=== PATIENT | female | born 1960 | race Hispanic/Latino ===

== ENCOUNTER 2019-10-18 16:05 | Emergency (ER) | payer SELFPAY ==
--- NOTE | 2019-10-18 17:48 | Event Note ---
ED Screening Note Date of service: 10/18/19 Time: 17:47 ED Screening Note: Pt complains of right ankle pain after injury 4 days This initial assessment/diagnostic orders/clinical plan/treatment(s) is/are subject to change based on patients health status, clinical progression and re-assessment by fellow clinical providers in the ED. Further treatment and workup at subsequent clinical providers discretion. Patient/guardian urged not to elope from the ED as their condition may be serious if not clinically assessed and managed. Initial orders include: XR
--- NOTE | 2019-10-18 18:23 | XRay Report ---
RIGHT ANKLE 4 VIEWS INDICATION: lateral pain after injury. COMPARISON: No relevant prior imaging study available. FINDINGS: No acute, displaced fracture or dislocation is seen. There is mild anterolateral soft tissue swelling . IMPRESSION: 1. No acute fracture. Signer Name: Oneal Sher MD Signed: 10/18/2019 6:18 PM Workstation Name: [id number]
[2019-10-18] MEDS ORDERED: KETOROLAC 60 MG/2 ML INJ IM ONE (22:23)
--- NOTE | 2019-10-18 22:31 | Emergency Department Report ---
ED Lower Extremity HPI - General Chief Complaint: Extremity Injury, Lower Stated Complaint: RT ANKLE INJURY/PAIN Time Seen by Provider: 10/18/19 17:47 Source: patient Mode of arrival: Ambulatory Limitations: No Limitations - History of Present Illness MD Complaint: ankle injury (reports tripped in the yard and twisting right ankle.) -: Gradual, hour(s) Injury: Ankle: Right Type of Injury: inversion Place: street/outdoors Severity: mild Severity scale (0 -10): 2 Improves With: immobilization Worsens With: weight bearing, movement Context: other (twisting) Associated Symptoms: able to partially bear weight - Related Data Previous Rx's Medication Instructions Recorded Last Taken Type Ibuprofen [Motrin 400 MG tab] 400 mg PO Q6H PRN #14 tablet 10/18/19 Unknown Rx methOCARBAMOL [Robaxin TAB] 500 mg PO BID PRN #10 tab 10/18/19 Unknown Rx Allergies Allergy/AdvReac Type Severity Reaction Status Date / Time haloperidol [From Haldol] Allergy Seizure Verified 10/18/19 16:08 ED Review of Systems ROS: Stated complaint: RT ANKLE INJURY/PAIN Other details as noted in HPI Other: GENERAL: No weight change, fatigue, fever, chills, or night sweats SKIN: No changes in skin or hair, no itching, no rashes, no jaundice HEAD: No trauma EYES: No blurriness, tearing, itching, acute visual loss, conjunctival discoloration, or scleral icterus EARS: No hearing loss, tinnitus, vertigo, or earache NOSE: No rhinorrhea, stuffiness, sneezing, itching, or epistaxis MOUTH: No bleeding gums, hoarseness, sore throat, or swelling CARDIAC: No new murmur, chest pain, palpitations, dyspnea on exertion, orthopnea, PND, or edema RESPIRATORY: No shortness of breath, wheeze, cough, sputum production, hemoptysis GI: No abdominal pain, nausea, vomiting, dysphagia, diarrhea, constipation, hematemesis, melena, hematochezia URINARY: No frequency, urgency, polyuria, dysuria, hematuria, or incontinence MUSCULOSKELETAL: Right ankle pain NEUROLOGIC: No headache, syncope, loss of sensation, numbness, tingling, tremors, weakness, paralysis, seizures HEMATOLOGIC: No anemia, easy bruising, bleeding, petechiae, or purpura ENDOCRINE: No hot or cold intolerance, sweating, polyuria, polydipsia or, polyphagia no thyroid problems PSYCHIATRIC: No change in mood, no anxiety, no depression ED Past Medical Hx - Past Medical History Additional medical history: FIBROMYALGIA - Social History Smoking Status: Current Every Day Smoker Substance Use Type: None - Medications Home Medications: Home Medications Medication Instructions Recorded Confirmed Last Taken Type Ibuprofen [Motrin 400 MG tab] 400 mg PO Q6H PRN #14 tablet 10/18/19 Unknown Rx methOCARBAMOL [Robaxin TAB] 500 mg PO BID PRN #10 tab 10/18/19 Unknown Rx ED Physical Exam - General Limitations: No Limitations - Other Other exam information: GENERAL: Patient in no acute distress HEAD: Normocephalic, atraumatic EYES: PERRLA, EOM intact, no scleral icterus, no conjunctival hemorrhage, visual farrar and acuity wnl HEART: pulses are symmetric LUNGS: No respiratory distress. MUSCULOSKELETAL: Right lateral malleolus swelling and mild tenderness. Decreased ROM right ankle due to pain. Mild erythema right ankle lateral malleolus. Mild tenderness. NEUROLOGIC: GCS 15, Alert and Oriented x3, Cranial nerves intact, normal sensation, normal strength, no cerebellar deficit, NIHSS 0 SKIN: Skin is warm and dry, no wounds, no rashes ED Course Vital Signs 10/18/19 10/18/19 10/18/19 17:48 22:32 23:00 Temperature 97.8 F Pulse Rate 74 60 Respiratory 18 18 18 Rate Blood Pressure 127/70 Blood Pressure 109/52 [Left] O2 Sat by Pulse 94 95 Oximetry ED Lower Extremity MDM - Radiology Data Radiology results: report reviewed - Medical Decision Making Patient comfortable. Updated with results. Plan discharge with outpatient follow up. Return if any worsening. Critical care attestation.: If time is entered above; I have spent that time in minutes in the direct care of this critically ill patient, excluding procedure time. ED Disposition Clinical Impression: Right ankle sprain Qualifiers: Encounter type: initial encounter Involved ligament of ankle: unspecified ligament Qualified Code(s): S93.401A - Sprain of unspecified ligament of right ankle, initial encounter Disposition: TO HOME OR SELFCARE Is pt being admited?: No Condition: Stable Instructions: Ankle Sprain (ED) Prescriptions: Ibuprofen [Motrin 400 MG tab] 400 mg PO Q6H PRN #14 tablet PRN Reason: Pain methOCARBAMOL [Robaxin TAB] 500 mg PO BID PRN #10 tab PRN Reason: Spasm Referrals: PRIMARY CARE, [Primary Care Provider] - 2-3 Days DMITRI DELEON MD [Staff Physician] - 2-3 Days Time of Disposition: 22:25
[2019-10-18 23:46] VITALS: BP 109/52
== END 2019-10-18 23:00 | disposition home or self-care (01) ==
LOC: ED 16:05
DX: S93.401A Sprain of unspecified ligament of right ankle, initial encounter (principal); F17.200 Nicotine dependence, unspecified, uncomplicated; Z88.6 Allergy status to analgesic agent
CPT/HCPCS: 29515; 73610; 96372; 99283; J1885

== ENCOUNTER 2021-01-16 09:30 | Outpatient (CLI) | payer BC ==
--- NOTE | 2021-01-16 11:04 | XRay Report ---
LEFT HIP 5 VIEWS INDICATION / CLINICAL INFORMATION: DISPLACED SUBTROCHANTETIC FRACTURE OF LEFT FEMUR COMPARISON: Left hip series from 10/28/2020. FINDINGS: BONES and JOINT(S): An old left subtrochanteric femoral fracture is unchanged in alignment with stabl e positioning of the internal fixation. No acute fracture or dislocation. Moderate lower lumbar spond ylosis is again noted. No other significant arthritis. SOFT TISSUES: No significant abnormality. ADDITIONAL FINDINGS: None. IMPRESSION: No acute findings. No significant interval changes. Signer Name: Familia Barry MD Signed: 01/16/2021 11:00 AM Workstation Name: [id number]
== END 2021-01-16 09:31 | disposition home or self-care (01) ==
LOC: XRAY 09:30
PROVIDERS: ATTEND Orthopaedic Surgery
DX: S72.22XD Displaced subtrochanteric fracture of left femur, subsequent encounter for closed fracture with routine healing (principal); M47.816 Spondylosis without myelopathy or radiculopathy, lumbar region; X58.XXXD Exposure to other specified factors, subsequent encounter

== ENCOUNTER 2021-03-13 10:19 | Outpatient (CLI) | payer BC ==
--- NOTE | 2021-03-13 11:27 | XRay Report ---
LEFT FEMUR 5 VIEWS INDICATION / CLINICAL INFORMATION: FRACTURE OF LEFT FEMUR. COMPARISON: None available. FINDINGS: ORIF of proximal left femur fracture with an intramedullary nail in place. No significant interval ch mike from the prior examination. Signer Name: Mike Quezada MD FACR Signed: 03/13/2021 11:22 AM Workstation Name: [id number]
== END 2021-03-13 10:20 | disposition home or self-care (01) ==
LOC: XRAY 10:19
PROVIDERS: ATTEND Orthopaedic Surgery
DX: S72.22XA Displaced subtrochanteric fracture of left femur, initial encounter for closed fracture (principal); X58.XXXA Exposure to other specified factors, initial encounter; Y93.89 Activity, other specified; Y92.89 Other specified places as the place of occurrence of the external cause; Y99.8 Other external cause status

== ENCOUNTER 2021-07-21 14:06 | Outpatient (CLI) | payer BC ==
--- NOTE | 2021-07-21 16:34 | XRay Report ---
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 Signer Name: Brayden Stovall MD Signed: 07/21/2021 4:30 PM Workstation Name: [id number]
--- NOTE | 2021-07-21 16:40 | Cat Scan Report ---
CT LEFT HIP WITHOUT CONTRAST INDICATION / CLINICAL INFORMATION: Displaced subtrochanteric fracture of left femur, initial encount. TECHNIQUE: All CT scans at this location are performed using CT dose reduction for ALARA by means of automated exposure control. COMPARISON: Left hip radiographs dated 03/13/2021 FINDINGS: HIP JOINT: No significant degeneration. BONES: Patient status post removal of intramedullary nail for previous subtrochanteric fracture. Ther e is no osseous bridging noted between the distal femur and proximal femur. Heterotopic ossification is noted throughout the soft tissues. No osseous lesion. SACROILIAC JOINT(S): No significant abnormality. MUSCLES / TENDONS: No significant abnormality. SOFT TISSUES: Postsurgical changes noted along the lateral aspect of the hip. LOWER LUMBAR SPINE: No significant abnormality of visualized lower lumbar spine. SOFT TISSUE WITHIN PELVIS: There is diverticulosis without diverticulitis ADDITIONAL FINDINGS: None. IMPRESSION: 1. Interval removal of intramedullary nail through the proximal femur. There is no osseous bridge not ed between the proximal and distal femur. Signer Name: Solomon Dior DO Signed: 07/21/2021 4:35 PM Workstation Name: [id number]
== END 2021-07-21 14:07 | disposition home or self-care (01) ==
LOC: CT 14:06
PROVIDERS: ATTEND Orthopaedic Surgery
DX: S72.22XA Displaced subtrochanteric fracture of left femur, initial encounter for closed fracture (principal); X58.XXXA Exposure to other specified factors, initial encounter; Y93.89 Activity, other specified; Y92.89 Other specified places as the place of occurrence of the external cause; Y99.8 Other external cause status

== ENCOUNTER 2021-08-30 06:34 | Outpatient (CLI) | payer BC ==
[2021-08-30] MEDS ORDERED: ONDANSETRON 4 MG/2 ML INJ IV NR (07:27)
[2021-08-30] MEDS ORDERED: HYDROmorphone 1 MG/1 ML INJ IV NR ×2 (07:28→09:36)
[2021-08-30 07:55] LABS: Basophils % (Auto) 0.6 % (0.0-1.8); Eosinophils # (Auto) 0.1 K/mm3 (0.0-0.4); Eosinophils % (Auto) 2.5 % (0.0-4.3); Hematocrit 38.6 % (30.3-42.9); Hemoglobin 12.8 gm/dl (10.1-14.3); Lymphocytes # (Auto) 0.6 K/mm3 (1.2-5.4); Lymphocytes % (Auto) 15.8 % (13.4-35.0); Mean Corpuscular HGB Conc 33 % (30-34); Mean Corpuscular Volume 86 fl (79-97); Monocytes # (Auto) 0.4 K/mm3 (0.0-0.8); Platelet Count 184 K/mm3 (140-440); Red Blood Count 4.49 M/mm3 (3.65-5.03); Red Cell Distribution Width 17.3 % (13.2-15.2)
[2021-08-30 08:05] LABS: INR 0.89 (0.87-1.13)
[2021-08-30 08:06] LABS: Partial Thromboplastin Time 31.2 Sec. (24.2-36.6)
[2021-08-30] MEDS ORDERED: SODIUM CHLORIDE 0.9% 500 ML 0 ML ONE (08:41)
[2021-08-30] MEDS ORDERED: LIDOCAINE (1%) 10 MG/1 ML VIAL 20 ML MDV ONE (09:28)
[2021-08-30 09:48] VITALS: BP 163/72
--- NOTE | 2021-08-30 11:29 | Cat Scan Report ---
CT-GUIDED BIOPSY LEFT HIP INDICATION : R/O infection. Osteomyelitis COMPARISON: 07/21/2021 PROCEDURE: The risks (including but not limited to bleeding and infection) and benefits were explain ed to the patient and informed consent was obtained. All CT scans at this location are performed usi ng CT dose reduction for ALARA by means of automated exposure control. A time out procedure was performed. The procedure site was prepped and draped in the usual sterile f ashion and lidocaine was used for local anesthesia. 1.5 mg of IV Dilaudid and 2 mg of IV Zofran were given for anxiolysis. Using CT guidance, a 17-gauge introducer needle was advanced to an area of bony destruction within th e proximal left femur. Only about 0.3 cc of serosanguineous fluid could be aspirated which was sent t o the laboratory for culture. 4 separate 18-gauge core biopsies on the 1.3 cm setting were obtained a nd also sent to microbiology in a sterile container for culture. The patient tolerated the procedure well with no complications. IMPRESSION: Successful CT-guided aspiration and biopsy at the left hip as described. Signer Name: Patricio Grewal Jr, MD Signed: 08/30/2021 11:25 AM Workstation Name: [id number]
== END 2021-08-30 11:40 | disposition home or self-care (01) ==
LOC: CT 06:34 → CATHLABREC 06:34
PROVIDERS: ATTEND Orthopaedic Surgery
DX: T84.52XA Infection and inflammatory reaction due to internal left hip prosthesis, initial encounter (principal); M86.151 Other acute osteomyelitis, right femur; F17.210 Nicotine dependence, cigarettes, uncomplicated; Z88.8 Allergy status to other drugs, medicaments and biological substances; Z79.899 Other long term (current) drug therapy; Z98.890 Other specified postprocedural states; Y83.8 Other surgical procedures as the cause of abnormal reaction of the patient, or of later complication, without mention of misadventure at the time of the procedure
CPT/HCPCS: 20206; 36415; 77012; 85025; 85610; 85730; 87116; 88307; J1170; J2405; 88305; J7040

== ENCOUNTER 2021-12-06 11:26 | Outpatient (CLI) | payer BC | END 2021-12-06 11:27 | disposition home or self-care (01) | LOC: WOUND 11:26 | PROVIDERS: ATTEND Surgery | DX: T81.89XA Other complications of procedures, not elsewhere classified, initial encounter (principal); L89.154 Pressure ulcer of sacral region, stage 4; S73.005A Unspecified dislocation of left hip, initial encounter; F32.9 Major depressive disorder, single episode, unspecified; F41.9 Anxiety disorder, unspecified; F17.290 Nicotine dependence, other tobacco product, uncomplicated; Z90.710 Acquired absence of both cervix and uterus; Z90.49 Acquired absence of other specified parts of digestive tract; X58.XXXA Exposure to other specified factors, initial encounter; Y93.89 Activity, other specified; Y92.238 Other place in hospital as the place of occurrence of the external cause; Y99.8 Other external cause status; Y83.8 Other surgical procedures as the cause of abnormal reaction of the patient, or of later complication, without mention of misadventure at the time of the procedure | CPT/HCPCS: 11043; 11046; G0463; 99214 ==

== ENCOUNTER 2021-12-13 14:41 | Outpatient (CLI) | payer BC ==
[2021-12-13] MEDS ORDERED: LIDOCAINE (4%) 40 MG/ML TOPICAL SOLN 50 ML BOTTLE TP ONE (15:01)
[2021-12-13] MEDS ORDERED: SODIUM HYPOCHLORITE, DAKIN'S FULL STRENGTH (0.5%) 473 ML TOPICAL SOLN TP ONE (15:56)
== END 2021-12-13 14:42 | disposition home or self-care (01) ==
LOC: WOUND 14:41
PROVIDERS: ATTEND Surgery
DX: L89.154 Pressure ulcer of sacral region, stage 4 (principal); S73.005D Unspecified dislocation of left hip, subsequent encounter; F41.9 Anxiety disorder, unspecified; F32.A Depression, unspecified; F17.290 Nicotine dependence, other tobacco product, uncomplicated; Z90.710 Acquired absence of both cervix and uterus; Z90.49 Acquired absence of other specified parts of digestive tract; Z79.899 Other long term (current) drug therapy; X58.XXXD Exposure to other specified factors, subsequent encounter

== ENCOUNTER 2021-12-20 13:52 | Outpatient (CLI) | payer BC ==
[2021-12-20] MEDS ORDERED: LIDOCAINE (4%) 40 MG/ML TOPICAL SOLN 50 ML BOTTLE TP ONE (14:02)
== END 2021-12-20 13:53 | disposition home or self-care (01) ==
LOC: WOUND 13:52
PROVIDERS: ATTEND Surgery
DX: L89.154 Pressure ulcer of sacral region, stage 4 (principal); S73.005D Unspecified dislocation of left hip, subsequent encounter; F41.9 Anxiety disorder, unspecified; F32.A Depression, unspecified; F17.290 Nicotine dependence, other tobacco product, uncomplicated; Z90.49 Acquired absence of other specified parts of digestive tract; Z90.710 Acquired absence of both cervix and uterus; Z98.890 Other specified postprocedural states; Z79.899 Other long term (current) drug therapy; X58.XXXD Exposure to other specified factors, subsequent encounter

== ENCOUNTER 2021-12-27 12:27 | Outpatient (CLI) | payer BC ==
[2021-12-27] MEDS ORDERED: LIDOCAINE (4%) 40 MG/ML TOPICAL SOLN 50 ML BOTTLE TP ONE (14:30)
== END 2021-12-27 12:28 | disposition home or self-care (01) ==
LOC: WOUND 12:27
PROVIDERS: ATTEND Surgery
DX: L89.154 Pressure ulcer of sacral region, stage 4 (principal); S73.005D Unspecified dislocation of left hip, subsequent encounter; F41.9 Anxiety disorder, unspecified; F32.A Depression, unspecified; F17.290 Nicotine dependence, other tobacco product, uncomplicated; Z90.49 Acquired absence of other specified parts of digestive tract; Z90.710 Acquired absence of both cervix and uterus; Z98.890 Other specified postprocedural states; Z79.899 Other long term (current) drug therapy; X58.XXXD Exposure to other specified factors, subsequent encounter

== ENCOUNTER 2022-01-03 14:05 | Outpatient (CLI) | payer BC ==
[2022-01-03] MEDS ORDERED: LIDOCAINE (4%) 40 MG/ML TOPICAL SOLN 50 ML BOTTLE TP ONE (15:00)
== END 2022-01-03 14:06 | disposition home or self-care (01) ==
LOC: WOUND 14:05
PROVIDERS: ATTEND Surgery
DX: L89.154 Pressure ulcer of sacral region, stage 4 (principal); S73.005D Unspecified dislocation of left hip, subsequent encounter; F41.9 Anxiety disorder, unspecified; F32.A Depression, unspecified; F17.290 Nicotine dependence, other tobacco product, uncomplicated; Z90.49 Acquired absence of other specified parts of digestive tract; Z90.710 Acquired absence of both cervix and uterus; Z98.890 Other specified postprocedural states; Z79.899 Other long term (current) drug therapy; X58.XXXD Exposure to other specified factors, subsequent encounter

== ENCOUNTER 2022-01-10 13:04 | Outpatient (CLI) | payer BC ==
[2022-01-10] MEDS ORDERED: LIDOCAINE (4%) 40 MG/ML TOPICAL SOLN 50 ML BOTTLE TP ONE (14:11)
== END 2022-01-10 13:05 | disposition home or self-care (01) ==
LOC: WOUND 13:04
PROVIDERS: ATTEND Surgery
DX: L89.154 Pressure ulcer of sacral region, stage 4 (principal); S73.005D Unspecified dislocation of left hip, subsequent encounter; F32.9 Major depressive disorder, single episode, unspecified; F41.9 Anxiety disorder, unspecified; F17.290 Nicotine dependence, other tobacco product, uncomplicated; Z79.899 Other long term (current) drug therapy; Z90.49 Acquired absence of other specified parts of digestive tract; Z90.710 Acquired absence of both cervix and uterus; Z98.890 Other specified postprocedural states; X58.XXXD Exposure to other specified factors, subsequent encounter

== ENCOUNTER 2022-01-24 14:15 | Outpatient (CLI) | payer BC ==
[2022-01-24] MEDS ORDERED: LIDOCAINE (4%) 40 MG/ML TOPICAL SOLN 50 ML BOTTLE TP ONE (14:24)
[2022-01-24] MEDS ORDERED: SILVER NITRATE APPLICATOR 1 EA TP SCH (15:00)
== END 2022-01-24 14:16 | disposition home or self-care (01) ==
LOC: WOUND 14:15
PROVIDERS: ATTEND Surgery
DX: L89.154 Pressure ulcer of sacral region, stage 4 (principal); S73.005D Unspecified dislocation of left hip, subsequent encounter; F32.9 Major depressive disorder, single episode, unspecified; F41.9 Anxiety disorder, unspecified; F17.290 Nicotine dependence, other tobacco product, uncomplicated; Z79.899 Other long term (current) drug therapy; Z90.49 Acquired absence of other specified parts of digestive tract; Z90.710 Acquired absence of both cervix and uterus; Z98.890 Other specified postprocedural states; X58.XXXD Exposure to other specified factors, subsequent encounter